=== PATIENT | male | born 1995 | race Caucasian/White ===

== ENCOUNTER 2017-06-24 11:26 | Emergency (ER) | payer MEDICAID ==
[~2017-06-24 11:26] MED LIST: ACETAMINOPHEN-O1 TAB PO; AMOXICILLIN 50500 MG PO; AUGMENTIN 875-1 EACH PO; BACTRIM DS 8001 TA1 PO; KEFLEX500 M1 PO; NAPROSYN500 M1 PO
--- OUTSIDE RECORDS SUMMARY | 2017-06-24 11:32 | External Medical Summary Rpt | CCD ---
Author Author , REJI Organization REJI Address Unknown Phone [email or web address] Purpose Continuity of Care Document - 10-11-2014 through 2016 Problems Code Diagnosis DOS Provider Status F11.20 Opioid dependence, uncomplicat ed J32.3 CHRONIC SPHENOIDAL SINUSITIS J32.9 CHRONIC SINUSITIS, UNSPECIFIED K02.9 DENTAL CARIES, UNSPECIFIED R51 HEADACHE S46.912A STRAIN UNSP MUSC/FASC/T END AT SHLDR/UP ARM, LEFT ARM, INIT S60.10XA CONTUSION OF UNSP FINGER WITH DAMAGE TO NAIL, INIT ENCNTR S61.219A LACERATION W/O FB OF UNSP FINGER W/O DAMAGE TO NAIL, INIT S61.411A LACERATION WITHOUT FOREIGN BODY OF RIGHT HAND, INIT ENCNTR S63.502A UNSPECIFIED SPRAIN OF LEFT WRIST, INITIAL ENCOUNTER Z00.8 ENCOUNTER FOR OTHER GENERAL EXAMINATION Results Labs Lab Lab Date Result Refere Interp Status Commen Order Detail nces retati t Range on Acute Hepatitis Panel (06-18-2017 18:14) Hepatit Negativ Negativ complet is B 017 e e ed virus 18:14 surface Ag [Presen ce] in Serum or Plasma by Immunoa ssay Hepatit Negativ Negativ complet is C 017 e e ed virus 18:14 Ab [Units/ volume] in Serum by Immunoa ssay Hepatit Negativ Negativ complet is A 017 e e ed virus 18:14 Ab [Units/ volume] in Serum by Radioim munoass ay (SHEKHAR) Hepatit Negativ Negativ complet is B 017 e e ed virus 18:14 core IgM Ab [Units/ volume] in Serum by Immunoa ssay Thyroid Stimulating Hormone (06-18-2017 18:14) Thyrotr 2.300 0.270-4 complet opin 017 mcIU/mL .200 ed [Units/ 18:14 volume] in Serum or Plasma Magnesium Level (06-18-2017 18:14) Magnesi 2.3 1.6-2.4 complet um 017 mg/dL ed [Moles/ 18:14 volume] in Serum or Plasma Gamma Glutamyl Transferase (06-18-2017 18:14) Gamma 19 IU/L 8-61 complet glutamy 017 ed l 18:14 transfe rase [Enzyma tic activit y/volum e] in Serum or Plasma Comprehensive Metabolic Panel (06-18-2017 18:14) Glomeru 126 complet lar 017 mL/min/ ed filtrat 18:14 1.73 m2 ion rate/1. 73 sq M.predi cted by Creatin ine-bas ed formula (CKD-EP I) Comment: GFR Afr Am and GFR Non Afr Am calculated using CKD-EPI equation. Comment: GFR Category GFR(mL/min/1.73 m?) Kidney Function Comment: Comment: G1 >=90 Normal or high Comment: G2 60-89 Mildly decreased Comment: G3a 45-59 Mildly to moderately decreased Comment: G3b 30-44 Moderately to severely decreased Comment: G4 15-29 Severely decreased Comment: G5 <15 Kidney Failure Glomeru 146 complet lar 017 mL/min/ ed filtrat 18:14 1.73 m2 ion rate/1. 73 sq M.predi cted by Creatin ine-bas ed formula (CKD-EP I) Alkalin 70 IU/L 40-129 complet e 017 ed phospha 18:14 tase [Enzyma tic activit y/volum e] in Serum or Plasma Asparta 21 IU/L <=40 complet te 017 ed aminotr 18:14 ansfera se [Enzyma tic activit y/volum e] in Serum or Plasma Alanine 10 IU/L <=41 complet 017 ed aminotr 18:14 ansfera se [Enzyma tic activit y/volum e] in Serum or Plasma Bilirub 0.7 0.1-1.4 complet in.tota 017 mg/dL ed l 18:14 [Mass/v olume] in Serum or Plasma Protein 7.3 6.4-8.3 complet 017 gm/dL ed [Mass/v 18:14 olume] in Serum or Plasma Albumin 5.1 3.5-5.2 complet 017 gm/dL ed [Mass/v 18:14 olume] in Serum or Plasma Creatin 0.80 0.67-1. complet ine 017 mg/dL 30 ed [Mass/v 18:14 olume] in Serum or Plasma Urea 8 mg/dL 6-20 complet nitroge 017 ed n 18:14 [Mass/v olume] in Serum or Plasma Glucose 73 74-100 complet 017 mg/dL ed [Mass/v 18:14 olume] in Serum or Plasma Calcium 9.5 8.6-10. complet 017 mg/dL 2 ed [Moles/ 18:14 volume] in Serum or Plasma Anion 16 7-16 complet gap in 017 mmol/L ed Serum 18:14 or Plasma Carbon 25 22-29 complet dioxide 017 mmol/L ed , total 18:14 [Moles/ volume] in Serum or Plasma Chlorid 100 98-107 complet e 017 mmol/L ed [Moles/ 18:14 volume] in Serum or Plasma Potassi 3.9 3.5-5.0 complet um 017 mmol/L ed [Moles/ 18:14 volume] in Serum or Plasma Sodium 141 136-145 complet [Moles/ 017 mmol/L ed volume] 18:14 in Serum or Plasma Alcohol Medical (06-18-2017 18:14) Ethanol < 10 <=10 complet 017 mg/dL ed [Mass/v 18:14 olume] in Blood CBC (06-18-2017 18:14) Platele 7.8 fL 6.8-10. complet t mean 017 8 ed volume 18:14 [Entiti c volume] in Blood by Automat ed count Platele 347 144-423 complet ts 017 x10(3)/ ed [#/volu 18:14 mcL me] in Blood by Automat ed count Erythro 14.1 % 11.5-15 complet cyte 017 .0 ed distrib 18:14 ution width [Ratio] by Automat ed count Erythro 34.6 32.1-35 complet cyte 017 gm/dL .3 ed mean 18:14 corpusc ular hemoglo bin concent ration [Mass/v olume] by Automat ed count Erythro 31.0 pg 27.0-34 complet cyte 017 .3 ed mean 18:14 corpusc ular hemoglo bin [Entiti c mass] by Automat ed count Erythro 89.7 fL 82.5-99 complet cyte 017 .8 ed mean 18:14 corpusc ular volume [Entiti c volume] by Automat ed count Hematoc 44.3 % 38.9-51 complet rit 017 .6 ed [Volume 18:14 Fractio n] of Blood by Automat ed count Hemoglo 15.3 13.5-17 complet bin 017 gm/dL .1 ed [Mass/v 18:14 olume] in Blood Erythro 4.93 4.30-5. complet cytes 017 x10(6)/ 81 ed [#/volu 18:14 mcL me] in Blood by Automat ed count Leukocy 9.8 4.0-11. complet violeta 017 x10(3)/ 0 ed [#/volu 18:14 mcL me] in Blood by Automat ed count Urinalysis (06-18-2017 14:33) Mucus Trace complet [Presen 017 /LPF ed ce] in 14:33 Urine by Automat ed Erythro < 1 0-3 complet cytes 017 /HPF ed [#/volu 14:33 me] in Urine by Automat ed count Leukocy 1 /HPF 0-4 complet violeta 017 ed [#/area 14:33 ] in Urine sedimen t by Microsc opy high power field Specifi 2 1.006 1.001-1 complet c 017 no .035 ed gravity 14:33 units of Urine by Test strip Comment: Reference range valid for random specimens only. Leukocy Negativ Negativ complet te 017 e e ed esteras 14:33 e [Units/ volume] in Urine Nitrite Negativ Negativ complet 017 e e ed [Presen 14:33 ce] in Urine Urobili Normal <=1 complet nogen 017 E.U./dL ed [Presen 14:33 ce] in Urine Protein Negativ Negativ complet 017 e mg/dL e ed [Mass/v 14:33 olume] in Urine by Test strip pH of 6.0 pH 5.0-8.0 complet Urine 017 ed 14:33 Erythro Negativ Negativ complet cytes 017 e e ed [#/volu 14:33 me] in Urine by Automat ed count Ketones Negativ Negativ complet 017 e mg/dL e ed [Presen 14:33 ce] in Urine Glucose Negativ Negativ complet 017 e mg/dL e ed [Presen 14:33 ce] in Urine Appeara Clear Clear complet nce of 017 ed Urine 14:33 Color Yellow complet of 017 ed Urine 14:33 DRUGS OF ABUSE, SCREEN ONLY, URINE (06-18-2017 14:33) Comment: These drug classes have been screened by immunoassay and are for medical purposes only. Results should not be used for non-medical purposes. These results are only valid for urine specimens. Any contamination with vaginal pool/amniotic fluid could Comment: These drug classes have been screened by immunoassay and are for medical purposes only. Results should not be used for non-medical purposes. These results are only valid for urine specimens. Any contamination with vaginal pool/amniotic fluid could Creatin 2 > 25.0 complet ine 017 mg/dL ed [Mass/v 14:33 olume] in Urine Comment: Greater than 20: Consistent with valid sample Comment: Greater than 2 but less than 20: Possible dilution Comment: Less than 2: Questionable valid sample Phencyc 2 Absent Absent complet lidine 017 ed [Presen 14:33 ce] in Unspeci fied specime n Oxycodo 06-18- Absent Absent complet ne 017 ed [Mass/v 14:33 olume] in Urine Opiates 06-18- Absent Absent complet 017 ed [Presen 14:33 ce] in Urine by Screen method Methado 06-18- Absent Absent complet ne+[place] 017 ed bolite 14:33 [Presen ce] in Urine by Screen method 06-18- Absent Absent complet 017 ed 14:33 Cocaine 06-18- Absent Absent complet 017 ed metabol 14:33 ites.ot her [Mass/v olume] in Urine Cannabi Absent Absent complet noids 017 ed [Presen 14:33 ce] in Serum or Plasma Bupreno 06-18- Presump Absent complet rphine 017 tive ed [Mass/v 14:33 Pos olume] in Serum or Plasma Benzodi 06-18- Absent Absent complet azepine 017 ed s 14:33 [Mass/v olume] in Urine Barbitu 06-18- Absent Absent complet rates 017 ed [Presen 14:33 ce] in Unspeci fied specime n Ampheta 06-18- Absent Absent complet mines 017 ed [Mass/v 14:33 olume] in Urine 6-[place] 06-18- Absent Absent complet cetylmo 017 ed rphine 14:33 (6-ISIDORO) [Mass/v olume] in Urine by Confirm atory method
--- OUTSIDE RECORDS SUMMARY | 2017-06-24 11:32 | External Medical Summary Rpt | CCD ---
Demographics Preferred Language Maltese Marital Status Unknown Scientology Affiliation Unknown Race Unknown Ethnic Group Unknown Author Author , REJI MENDOZA Address Unknown Phone Immunization No patient found.
--- OUTSIDE RECORDS SUMMARY | 2017-06-24 11:32 | External Medical Summary Rpt | CCD ---
Author Author [employer] Organization [employer] Address Unknown Phone Unavailable Purpose Continuity of Care Document - through 2016
--- OUTSIDE RECORDS SUMMARY | 2017-06-24 11:32 | External Medical Summary Rpt | CCD ---
Author Author , REJI Organization REJI Address Unknown Phone [email or web address] Purpose Continuity of Care Document - 10-11-2014 [...] Screen method Methado 06-18- Absent Absent complet ne+[place] 017 ed bolite 14:33 [Presen ce] in [...]
--- OUTSIDE RECORDS SUMMARY | 2017-06-24 11:32 | External Medical Summary Rpt | CCD ---
Demographics Preferred Language Persian Marital Status Unknown Latter Day Affiliation Unknown Race Unknown Ethnic Group Unknown Author Author , REJI MENDOZA Address Unknown Phone Immunization No patient found.
--- OUTSIDE RECORDS SUMMARY | 2017-06-24 11:33 | External Medical Summary Rpt ---
Author Author [facility] Yadira, [employer] Organization [employer] Address Unknown Phone Unavailable Results Acute Hepatitis Panel Observa Value Referen Units Interpr Notes Date tion ce etation Range Hepatit Negativ Negativ No No No Jun 18 is B e e informa informa informa 2017 virus tion in tion in tion in 6:14 PM surface source source source Ag data data data [Presen ce] in Serum by Immunoa ssay Hepatit Negativ Negativ No No No Jun 18 is B e e informa informa informa 2016 virus tion in tion in tion in 6:14 PM core source source source IgM Ab data data data [Units/ volume] in Serum by Immunoa ssay Hepatit Negativ Negativ No No No Jun 18 is A e e informa informa informa 2016 virus tion in tion in tion in 6:14 PM Ab source source source [Units/ data data data volume] in Serum by Radioim munoass ay (SHEKHAR) Hepatit Negativ Negativ No No No Jun 18 is C e e informa informa informa 2016 virus tion in tion in tion in 6:14 PM Ab source source source [Units/ data data data volume] in Serum by Immunoa ssay XTRA GOLD SST Observa Value Referen Units Interpr Notes Date tion ce etation Range Thyroid Stimulating Hormone Observa Value Referen Units Interpr Notes Date tion ce etation Range Thyrotr 2.300 0.270 - mcIU/mL No No Jun 18 opin 4.200 informa informa 2016 [Units/ tion in tion in 6:14 PM volume] source source in data data Serum or Plasma Gamma Glutamyl Transferase Observa Value Referen Units Interpr Notes Date tion ce etation Range Gamma 19 8 - 61 IU/L No No Jun 18 glutamy informa informa 2016 l tion in tion in 6:14 PM transfe source source rase data data [Enzyma tic activit y/volum e] in Serum or Plasma Magnesium Level Observa Value Referen Units Interpr Notes Date tion ce etation Range Magnesi 2.3 1.6 - mg/dL No Jun 18 um 2.4 informa informa 2016 [Moles/ tion in tion in 6:14 PM volume] source source in data data Serum or Plasma Comprehensive Metabolic Panel Observa Value Referen Units Interpr Notes Date tion ce etation Range Sodium 141 136 - mmol/L No Jun 18 [Moles/ 145 informa informa 2016 volume] tion in tion in 6:14 PM in source source Serum data data or Plasma Potassi 3.9 3.5 - mmol/L No Jun 18 um 5.0 informa informa 2016 [Moles/ tion in tion in 6:14 PM volume] source source in data data Serum or Plasma Chlorid 100 98 - mmol/L No Jun 18 e 107 informa informa 2016 [Moles/ tion in tion in 6:14 PM volume] source source in data data Serum or Plasma Carbon 25 22 - 29 mmol/L No Jun 18 dioxide informa informa 2016 , total tion in tion in 6:14 PM source source [Moles/ data data volume] in Serum or Plasma Anion 16 7 - 16 mmol/L No Jun 18 gap in informa informa 2016 Serum tion in tion in 6:14 PM or source source Plasma data data Calcium 9.5 8.6 - mg/dL No Jun 18 10.2 informa informa 2016 [Moles/ tion in tion in 6:14 PM volume] source source in data data Serum or Plasma Glucose 73 74 - mg/dL Low No Jun 18 100 informa 2016 [Mass/v tion in 6:14 PM olume] source in data Serum or Plasma Urea 8 6 - 20 mg/dL No Jun 18 nitroge informa informa 2016 n tion in tion in 6:14 PM [Mass/v source source olume] data data in Serum or Plasma Creatin 0.80 0.67 - mg/dL No Jun 18 ine 1.30 informa informa 2017 [Mass/v tion in tion in 6:14 PM olume] source source in data data Serum or Plasma Albumin 5.1 3.5 - gm/dL No Jun 18 5.2 informa informa 2016 [Mass/v tion in tion in 6:14 PM olume] source source in data data Serum or Plasma Protein 7.3 6.4 - gm/dL No No Jun 18 8.3 informa informa 2016 [Mass/v tion in tion in 6:14 PM olume] source source in data data Serum or Plasma Bilirub 0.7 0.1 - mg/dL No Jun 18 in.tota 1.4 informa informa 2017 l tion in tion in 6:14 PM [Mass/v source source olume] data data in Serum or Plasma Alanine 10 <=41 IU/L No No Jun 18 informa informa 2017 aminotr tion in tion in 6:14 PM ansfera source source se data data [Enzyma tic activit y/volum e] in Serum or Plasma Asparta 21 <=40 IU/L No No Jun 18 te informa informa 2017 aminotr tion in tion in 6:14 PM ansfera source source se data data [Enzyma tic activit y/volum e] in Serum or Plasma Alkalin 70 40 - IU/L No No Jun 18 e 129 informa informa 2017 phospha tion in tion in 6:14 PM tase source source [Enzyma data data tic activit y/volum e] in Serum or Plasma Glomeru 146 No mL/min/ No No Jun 18 lar informa 1.73_m2 informa informa 2017 filtrat tion in tion in tion in 6:14 PM ion source source source rate/1. data data data 73 sq M.predi cted by Creatin ine-bas ed formula (CKD-EP I) Glomeru 126 No mL/min/ No GFR Afr Jun 18 lar informa 1.73_m2 informa Am and 2017 filtrat tion in tion in GFR 6:14 PM ion source source Non Afr rate/1. data data Am 73 sq calcula M.predi taylor cted by using CKD-EPI Creatin ine-bas equatio ed n.GFR formula Categor y (CKD-EP GFR(mL/ I) min/1.7 3 m ) Kidney Functio n _G1 >=90 Normal or highG2 60-89 Mildly decreas edG3a 45-59 Mildly to moderat rosie decreas edG3b 30-44 Moderat rosie to severel y decreas edG4 15-29 Severel y decreas edG5 <15 Kidney Failure CBC Observa Value Referen Units Interpr Notes Date tion ce etation Range Leukocy 9.8 4.0 - x10(3)/ No Jun 18 sinai 11.0 mcL informa informa 2016 [#/volu tion in tion in 6:14 PM me] in source source Blood data data by Automat ed count Erythro 4.93 4.30 - x10(6)/ No Jun 18 cytes 5.81 mcL informa informa 2016 [#/volu tion in tion in 6:14 PM me] in source source Blood data data by Automat ed count Hemoglo 15.3 13.5 - gm/dL No Jun 18 bin 17.1 informa informa 2017 [Mass/v tion in tion in 6:14 PM olume] source source in data data Blood Hematoc 44.3 38.9 - % No Jun 18 rit 51.6 informa informa 2016 [Volume tion in tion in 6:14 PM source source Fractio data data n] of Blood by Automat ed count Erythro 89.7 82.5 - fL No Jun 18 cyte 99.8 informa informa 2016 mean tion in tion in 6:14 PM corpusc source source ular data data volume [Entiti c volume] by Automat ed count Erythro 31.0 27.0 - pg No Jun 18 cyte 34.3 informa informa 2016 mean tion in tion in 6:14 PM corpusc source source ular data data hemoglo bin [Entiti c mass] by Automat ed count Erythro 34.6 32.1 - gm/dL No Jun 18 cyte 35.3 informa informa 2016 mean tion in tion in 6:14 PM corpusc source source ular data data hemoglo bin concent ration [Mass/v olume] by Automat ed count Erythro 14.1 11.5 - % No No Jun 18 cyte 15.0 informa informa 2017 distrib tion in tion in 6:14 PM ution source source width data data [Ratio] by Automat ed count Platele 347 144 - x10(3)/ No No Jun 18 ts 423 mcL informa informa 2017 [#/volu tion in tion in 6:14 PM me] in source source Blood data data by Automat ed count Platele 7.8 6.8 - fL No No Jun 18 t mean 10.8 informa informa 2017 volume tion in tion in 6:14 PM [Entiti source source c data data volume] in Blood by Automat ed count EXTRA YELLOW URINE Observa Value Referen Units Interpr Notes Date tion ce etation Range Hep Prf-Ac Observa Value Referen Units Interpr Notes Date tion ce etation Range Hepatit Negativ Negativ No No No Oct 12 is B e e informa informa informa 2015 virus tion in tion in tion in 10:10 surface source source source AM Ag data data data [Presen ce] in Serum by Immunoa ssay Hep B Negativ Negativ No No No Oct 12 Core e e informa informa informa 2015 IgM tion in tion in tion in 10:09 source source source AM data data data Hepatit Negativ Negativ No No No Oct 12 is A e e informa informa informa 2015 virus tion in tion in tion in 10:08 Ab source source source AM [Units/ data data data volume] in Serum by Radioim munoass ay (SHEKHAR) Hep C Negativ Negativ No No No Oct 12 Ab e e informa informa informa 2015 tion in tion in tion in 10:10 source source source AM data data data DOA Screen Observa Value Referen Units Interpr Notes Date tion ce etation Range Cannabi Presump 50 No Abnorma No Oct 11 noid tive ng/mL informa l informa 2015 Screen Pos tion in tion in 7:25 PM source source data data Benzodi Presump 200 No Abnorma No Oct 11 azepine tive ng/mL informa l informa 2014 s Pos tion in tion in 7:25 PM Screen source source data data Cocaine Absent 150 No No No Mar 24 Screen ng/mL informa informa informa 2015 tion in tion in tion in 7:25 PM source source source data data data Opiate Presump 300 No Abnorma No Sep 24 300 tive ng/mL informa l informa 2015 Screen Pos tion in tion in 7:25 PM source source data data Barbitu Absent 200 No No No Sep 24 rate ng/mL informa informa informa 2015 Screen tion in tion in tion in 7:25 PM source source source data data data Ampheta Absent 500 No No No Sep 24 mine ng/mL informa informa informa 2015 Screen tion in tion in tion in 7:25 PM source source source data data data Phencyc Absent 25 No No No Oct 11 lidine ng/mL informa informa informa 2015 Screen tion in tion in tion in 7:25 PM source source source data data data Methado Absent 300 No No No Sep 24 ne ng/mL informa informa informa 2015 Screen tion in tion in tion in 7:25 PM source source source data data data Oxycodo Presump 100 No Abnorma No Sep 24 ne tive ng/mL informa l informa 2014 Screen Pos tion in tion in 7:25 PM source source data data 6 AM Absent 10 No No No Sep 24 (Heroin ng/mL informa informa informa 2014 ) tion in tion in tion in 7:25 PM Screen source source source data data data Bupreno Absent 5 ng/mL No No No Sep 24 rphine informa informa informa 2015 Screen tion in tion in tion in 7:25 PM source source source data data data Creatin 91.0 No mg/dL No \.br\Gr Sep 24 ine Ur informa informa eater 2015 tion in tion in than 7:25 PM source source 20: data data Consist ent with valid sample\ .br\Gre ater than 2 but less than 20: Possibl e dilutio n\.br\L ess than 2: Questio nable valid sample Procedu These No No No No Sep 24 re Note drug informa informa informa informa 2015 Screen classes tion in tion in tion in tion in 7:25 PM have source source source source been data data data data screene d by immunoa ssay and are for medical purpose s only. The results should not be used for non-med ical purpose s. If confirm ation is desired , please place a separat e order for each drug confirm ation. Specime ns will be saved for 3 s days should additio nal orders/ testing be desired . TSH Observa Value Referen Units Interpr Notes Date tion ce etation Range Thyrotr 1.030 0.270 - mcIU/mL No No Oct 11 opin 4.200 informa informa 2014 [Units/ tion in tion in 5:45 PM volume] source source in data data Serum or Plasma CMP Observa Value Referen Units Interpr Notes Date tion ce etation Range Sodium 141 136 - mmol/L No No Oct 11 145 informa informa 2014 tion in tion in 5:45 PM source source data data Potassi 4.7 3.5 - mmol/L No No Oct 11 um 5.0 informa informa 2014 [Moles/ tion in tion in 5:45 PM volume] source source in data data Serum or Plasma Chlorid 100 98 - mmol/L No No Oct 11 e 107 informa informa 2014 tion in tion in 5:45 PM source source data data Carbon 24 22 - 29 mmol/L No No Oct 11 dioxide informa informa 2014 , total tion in tion in 5:45 PM source source [Moles/ data data volume] in Serum or Plasma Anion 17 7 - 16 mmol/L High No Oct 11 Gap informa 2014 tion in 5:45 PM source data CALCIUM 9.4 8.6 - mg/dL No No Oct 11 .TOTAL 10.2 informa informa 2014 tion in tion in 5:45 PM source source data data Glucose 50 74 - mg/dL Low No Oct 11 Lvl 100 informa 2014 tion in 5:45 PM source data BUN 6 6 - 20 mg/dL No No Oct 11 informa informa 2014 tion in tion in 5:45 PM source source data data Creatin 0.76 0.67 - mg/dL No No Oct 11 ine 1.30 informa informa 2014 tion in tion in 5:45 PM source source data data Albumin 4.7 3.5 - gm/dL No No Oct 11 5.2 informa informa 2014 [Mass/v tion in tion in 5:45 PM olume] source source in data data Serum or Plasma Protein 7.0 6.4 - gm/dL No No Oct 11 8.3 informa informa 2014 [Mass/v tion in tion in 5:45 PM olume] source source in data data Serum or Plasma Bilirub 0.3 0.1 - mg/dL No Oct 11 in.tota 1.4 informa informa 2014 l tion in tion in 5:45 PM [Mass/v source source olume] data data in Serum or Plasma ASPARTA 35 <=40 IU/L No No Oct 11 TE informa informa 2014 AMINOTR tion in tion in 5:45 PM ANSFERA source source SE data data Alanine 24 <=41 IU/L No No Oct 11 informa informa 2014 aminotr tion in tion in 5:45 PM ansfera source source se data data [Enzyma tic activit y/volum e] in Serum or Plasma Alkalin 58 40 - IU/L No No Oct 11 e 129 informa informa 2014 phospha tion in tion in 5:45 PM tase source source [Enzyma data data tic activit y/volum e] in Serum or Plasma GGT Observa Value Referen Units Interpr Notes Date tion ce etation Range Gamma 19 8 - 61 IU/L No No Oct 11 glutamy informa informa 2014 l tion in tion in 5:45 PM transfe source source rase data data [Enzyma tic activit y/volum e] in Serum or Plasma Mg Observa Value Referen Units Interpr Notes Date tion ce etation Range Magnesi 1.9 1.6 - mg/dL No No Oct 11 um 2.4 informa informa 2014 [Moles/ tion in tion in 5:45 PM volume] source source in data data Serum or Plasma Hemogram Observa Value Referen Units Interpr Notes Date tion ce etation Range LEUKOCY 5.5 4.0 - x10(3)/ No No Oct 11 [facility] 11.0 mcL informa informa 2014 tion in tion in 4:09 PM source source data data Erythro 4.48 4.30 - x10(6)/ No No Oct 11 cytes 5.81 mcL informa informa 2014 [#/volu tion in tion in 4:09 PM me] in source source Blood data data by Automat ed count Hemoglo 14.1 13.5 - gm/dL No No Oct 11 bin 17.1 informa informa 2014 [Mass/v tion in tion in 4:09 PM olume] source source in data data Blood Hematoc 40.4 38.9 - % No No Oct 11 rit 51.6 informa informa 2015 [Volume tion in tion in 4:09 PM source source Fractio data data n] of Blood by Automat ed count Erythro 90.1 82.5 - fL No No Oct 11 cyte 99.8 informa informa 2015 mean tion in tion in 4:09 PM corpusc source source ular data data volume [Entiti c volume] by Automat ed count Erythro 31.5 27.0 - pg No No Oct 11 cyte 34.3 informa informa 2015 mean tion in tion in 4:09 PM corpusc source source ular data data hemoglo bin [Entiti c mass] by Automat ed count Erythro 35.0 32.1 - gm/dL No No Oct 11 cyte 35.3 informa informa 2014 mean tion in tion in 4:09 PM corpusc source source ular data data hemoglo bin concent ration [Mass/v olume] by Automat ed count Erythro 12.3 11.5 - % No No Oct 11 cyte 15.0 informa informa 2014 distrib tion in tion in 4:09 PM ution source source width data data [Ratio] by Automat ed count Platele 254 144 - x10(3)/ No No Oct 11 ts 423 mcL informa informa 2014 [#/volu tion in tion in 4:09 PM me] in source source Blood data data by Automat ed count MPV 8.6 6.8 - fL No No Oct 11 10.8 informa informa 2014 tion in tion in 4:09 PM source source data data UA Observa Value Referen Units Interpr Notes Date tion ce etation Range UA Yellow No No No No Oct 11 Color informa informa informa informa 2015 tion in tion in tion in tion in 3:46 PM source source source source data data data data UA Clear Clear No No No Oct 11 Appear informa informa informa 2015 tion in tion in tion in 3:46 PM source source source data data data UA Negativ Negativ No No No Oct 11 Glucose e e informa informa informa 2014 tion in tion in tion in 3:46 PM source source source data data data UA Negativ Negativ No No No Oct 11 Ketones e e informa informa informa 2014 tion in tion in tion in 3:46 PM source source source data data data UA Negativ Negativ No No No Oct 11 Blood e e informa informa informa 2014 tion in tion in tion in 3:46 PM source source source data data data UA pH 6.0 4.8 - No No ReferOct 11 8.0 informa informa ce 2014 tion in tion in range 3:46 PM source source valid data data for random specime ns only. UA Negativ Negativ No No No Oct 11 Protein e e informa informa informa 2014 tion in tion in tion in 3:46 PM source source source data data data UA Normal <=1 No No No Oct 11 Urobili mg/dl informa informa informa 2014 nogen tion in tion in tion in 3:46 PM source source source data data data UA Negativ Negativ No No No Oct 11 Nitrite e e informa informa informa 2014 tion in tion in tion in 3:46 PM source source source data data data UA Leuk Negativ Negativ No No No Oct 11 Est e e informa informa informa 2014 tion in tion in tion in 3:46 PM source source source data data data UA Spec 1.011 1.001 - No No Referen Oct 11 Grav 1.035 informa informa ce 2014 tion in tion in range 3:46 PM source source valid data data for random specime ns only.
== END 2017-06-24 12:21 | disposition left against medical advice (07) ==
LOC: UTC 11:26
DX: Z02.89 Encounter for other administrative examinations (principal); R11.10 Vomiting, unspecified; F17.210 Nicotine dependence, cigarettes, uncomplicated